=== PATIENT | male | born 2000 | race Caucasian/White ===

== ENCOUNTER 2018-06-06 18:44 | Emergency (ER) | payer MEDICAID, SELFPAY ==
[2018-06-06 19:16] VITALS: BP 122/78; PULSE 72; RESP 18; TEMP 36.4; O2SAT 100
[2018-06-06 21:47] VITALS: BP 161/67; PULSE 75; RESP 16; TEMP 36.9
--- NOTE | 2018-06-06 21:52 | ED.DENTAL ---
HPI - Dental/Oral General Chief complaint: Dental/Oral Stated complaint: TOOTH INFECTION Time Seen by Provider: 06/06/18 21:45 Source: patient Mode of arrival: ambulatory Limitations: no limitations History of Present Illness HPI Narrative: Patient is an otherwise healthy 17-year-old male here for evaluation of bilateral lower posterior tooth infections. He states that has been going on for several weeks. He recently moved to the area and does not have a local dentist. Has been doing ibuprofen. Does have some pain in his ears and also sinus pain. Related Data Previous Rx's Medication Instructions Recorded dextroamphetamine-amphetamine 10 mg PO QDAY #30 05/13/12 [Adderall XR] hydrocodone-acetaminophen [[place]] 1 tab PO Q4-6H PRN #10 tab 06/06/18 penicillin V potassium 500 mg PO QID 7 Days #28 tab 06/06/18 Allergies Allergy/AdvReac Type Severity Reaction Status Date / Time No Known Drug Allergies Allergy Verified 06/06/18 19:18 Review of Systems Constitutional Denies fever(s) and Reports headache(s) ENT Ears, Nose, Mouth, and Throat: Denies vertigo, Reports headache(s), Denies sore throat, Denies throat swelling and Denies tongue swelling Comments: Tooth pain Cardiovascular Denies chest pain and Denies dyspnea Respiratory Denies dyspnea Integumentary/Breasts Denies rash Neurologic Denies vertigo and Reports headache(s) Allergic/Immunologic Denies urticaria, Denies throat swelling and Denies tongue swelling PFSH Medical History Healthy adult (Acute) Social History Smoking Status: Current every day smoker Social History Smoking Status: Current every day smoker Exam Initial Vital Signs Initial Vital Signs: Vital Signs Temperature 97.6 F 06/06/18 19:16 Pulse Rate 72 06/06/18 19:16 Respiratory Rate 18 06/06/18 19:16 Blood Pressure 122/78 06/06/18 19:16 Pulse Oximetry 100 06/06/18 19:16 Const General: cooperative, comfortable, well developed, well groomed and No acute distress Orientation: alert, awake and oriented x3 HENMT Teeth and gingiva: abnormal tooth or associated gingiva (Tooth 19 #30 fractured), caries and poor dentition Resp Effort & Inspection: normal respiratory effort Cardio Rate: regular rate Neuro General: alert, awake and oriented x3 Extrem General: normal to inspection and capillary refill normal Psych Appearance: grossly normal and well kempt Course Vital Signs - 8 hr 06/06/18 19:16 06/06/18 21:47 Temperature 97.6 F 98.4 F Pulse Rate 72 75 Respiratory Rate 18 16 Blood Pressure 122/78 Blood Pressure [Left Arm] 161/67 H Pulse Oximetry 100 MDM - Dental/Oral MDM Narrative Medical decision making narrative: Has tooth 19. And number 30 fractured. No abscesses noted on exam. No drainable abscess seen here in the ER. Patient without respiratory distress. Was sent home with antibiotics and pain medication. He was instructed on the low-cost dental clinics in the area. He was given return precautions. I offered a dental block however the patient declined. Patient expressed understanding and agreement with plan. Discharge Plan Departure Patient Disposition: Home Clinical Impression: Toothache, Dental caries Discharge Date/Time: 06/06/18 22:09 Interventions: ED Discharge Assessment Last Done: 06/06/18 22:09 Instructions: Tooth Decay, DI for Dental Pain Activity Restrictions/Additional Instructions: Take the antibiotics and the pain medication as needed. Recommend that tomorrow you contact a local dentist. Return to the emergency department for any new or worsening symptoms Prescriptions: New hydrocodone-acetaminophen [[place]] 5-325 mg tablet 1 tab PO Q4-6H PRN (Reason: pain) Qty: 10 RF: 0 penicillin V potassium 500 mg tablet 500 mg PO QID 7 Days Qty: 28 RF: 0 No Action dextroamphetamine-amphetamine [Adderall XR] 10 MG capsule,extended release 24hr 10 mg PO QDAY Qty: 30 RF: 0
== END 2018-06-06 22:09 | disposition home or self-care (01) ==
PROVIDERS: Emergency Provider Emergency Medicine
DX: K08.89 Other specified disorders of teeth and supporting structures (principal); K02.9 Dental caries, unspecified
CPT/HCPCS: 99282